=== PATIENT | female | born 1955 | race Caucasian/White ===

== ENCOUNTER → 2020-05-06 10:19 | Outpatient (CLI) | payer MEDICARE, SELFPAY ==
--- NOTE | ~2020-05-06 | CT_ITS ---
EXAMINATION: CT brain wo con EXAM DATE: 05/06/2020 10:39 INDICATION: Change in vision. TECHNIQUE: Spiral CT of the head was performed without contrast. Axial, coronal and sagittal images were reviewed. The dose-length product (DLP) for this examination was 599.57 mGy-cm. The exposure w as tailored according to patient size, and iterative reconstruction (ASIR) was used as additional dos e reduction technique. There is no prior study for comparison. FINDINGS: There is no acute intraparenchymal hemorrhage. No evidence of intraparenchymal brain mass lesion. No evidence of acute infarction. Please note that initial head CT has limited sensitivity f or small or acute infarctions. There is mild to moderate periventricular and subcortical hypodensity, nonspecific but probably related to small vessel ischemic disease. There is intracranial carotid arteriosclerosis. There are no extra-axial collections. There is no mass effect or midline shift. The orbits are unremarkable. Soft tissue is unremarkable. The visualized sinuses and mastoid air c ells are well aerated. IMPRESSION: 1. No acute intracranial findings. 2. Chronic age related findings. Reviewed, dictated and finalized at location B. [employer]
== END ==
PROVIDERS: PCP Internal Medicine; Visit Provider Internal Medicine
DX: H53.9 Unspecified visual disturbance (principal); I67.2 Cerebral atherosclerosis
CPT/HCPCS: 70450

== ENCOUNTER → 2021-02-28 18:31 | Outpatient (CLI) | payer MEDICARE, SELFPAY ==
--- NOTE | ~2021-02-28 | XR_ITS ---
XR hip LT 2V w AP pelvis DATE: 02/28/2021 19:10 INDICATION: Left hip pain TECHNIQUE: AP, lateral views of left hip. AP pelvis. COMPARISON: None FINDINGS: There is diffuse osteopenia. There is mild levoscoliosis of the lumbar spine. No pelvic fracture or bone destruction is detected. The pubic symphysis and sacroiliac joints are int act. Hip joint spaces are symmetric and relatively well preserved. No fracture or dislocation, avascular necrosis or bone destruction of the left hip. IMPRESSION: Osteopenia No pelvic or left hip fracture or dislocation Reviewed, dictated and finalized at location A.
== END ==
DX: M25.552 Pain in left hip (principal); M85.852 Other specified disorders of bone density and structure, left thigh
CPT/HCPCS: 73502

== ENCOUNTER → 2021-06-06 07:02 | Outpatient (CLI) | payer MEDICARE, SELFPAY ==
--- NOTE | ~2021-06-06 | DEXA_ITS ---
Bone Density Report Name: AILYN OSEI Age: 65 Sex: Female Ethnicity: White Date of : 1955 Indication: postmenopausal; screening for osteoporosis; height loss; Referring Provider: JULIETA Study: Bone densitometry was performed. Exam Date: June 06, 2021 Accession number: [id number] Bone Density: Region BMD T-score Z-score Classification AP Spine (L1, L2, L3) 1.005 -0.1 1.8 Normal Femoral Neck (Left) 0.733 -1.0 0.6 Normal Total Hip (Left) 0.815 -1.0 0.3 Normal Femoral Neck (Right) 0.713 -1.2 0.4 Osteopenia Total Hip (Right) 0.810 -1.1 0.3 Osteopenia Total Hip Mean 0.813 -1.1 0.3 Osteopenia World Health Organization criteria for BMD impression classify patients as: Normal (T-score at or above -1.0), Osteopenia (T-score between -1.0 and -2.5), or Osteoporosis (T-score at or below -2.5). 10-year Fracture Risk(1): Major Osteoporotic Fracture 8.6% Hip Fracture 0.8% Reported Risk Factors: [place] (), Neck BMD=0.713, BMI=30.3 (1) FRAX(R) Version 3.08. Fracture probability calculated for an untreated patient. Fracture probability may be lower if the patient has received treatment. Clinical Information Provided by Patient: Has used the following medications: Vitamin D, MTV Patient maximum height was 69 Menopause Age: 46 No regular weight bearing exercise Drinks caffeinated beverages Onset of menses at age 8 Number of children 2 Impression: The patient has low bone mass, based on the Right Femoral Neck T-score. The patient has an estimated ten-year risk of hip fracture of 0.8% and an estimated ten-year risk of major fracture of 8.6%, based on the WHO FRAX algorithm. Discussion: BONE DENSITY IS LOW AT ONE OR MORE SKELETAL SITES. This patient's lowest T-score is low at one or more skeletal sites. It meets the World Health Organization's (WHO) criteria for ?low bone mass? (T-score between -1.0 and -2.5). The patient's 10-year risk of fracture as calculated by FRAX is less than the threshold where pharmacological therapy is recommended by the National Osteoporosis Foundation (NOF). However, all treatment decisions require clinical judgment and consideration of individual patient factors, including patient preferences, comorbidities, previous drug use, risk factors not captured in the FRAX model (e.g., frailty, falls, vitamin D deficiency, increased bone turnover, interval significant decline in bone density) and possible under or overestimation of fracture risk by FRAX. The patient should follow a healthful lifestyle (good nutrition with adequate calcium and vitamin D, and appropriate weight-bearing exercise). Follow-Up: Consider repeating this study in 2 to 3 years to reassess this patient's status, or sooner if there is some new clinical indication. Reported by: [facility] on 06/06
== END ==
PROVIDERS: PCP Internal Medicine
DX: Z78.0 Asymptomatic menopausal state (principal); M85.89 Other specified disorders of bone density and structure, multiple sites
CPT/HCPCS: 77080

== ENCOUNTER → 2021-11-01 10:57 | Outpatient (CLI) | payer MEDICARE, SELFPAY ==
--- NOTE | ~2021-11-01 | MR_ITS ---
EXAMINATION: MR hip LT wo con DATE: 11/01/2021 12:31 INDICATION: 6 months of left hip pain TECHNIQUE: Magnetic resonance imaging (MRI) of the left hip was performed without intravenous contra st. Sequences included full-field axial PD-weighted FS FSE and T1-weighted FSE, coronal of the pelvis with PD-weighted FS FSE, T2-weighted FSE and T1-weighted FSE, small field of view of the left hip w ith axial PD-weighted FS FSE, sagittal PD-weighted FS FSE, coronal PD-weighted FS FSE and coronal T2 weighted FSE. Additional radial T1-weighted FGR oriented orthogonal to the acetabular rim were obtai robyn for evaluation of the labrum. COMPARISON: Radiographs dated 02/28/2021 FINDINGS: Bones/labrum/cartilage: Alignment is normal. No fracture, avascular necrosis or pathologic marrow replacing process. Severe lower lumbar spondylosis with severe disc height loss on either side of a transitional lumbosacral se gment lumbarized which is sacralized on the left. There is also severe lower lumbar facet osteoarthri tis. Moderate bilateral sacroiliac osteoarthritis. Mild left hip osteoarthritis with partial thicknes s cartilage loss with mild nonuniform joint space narrowing. There is partial thickness cartilage los s with smooth chondral surface at the posterior aspect of the joint space and partial-thickness chond ral ulceration and fissuring at the anterosuperior acetabulum. There is a tear of the 1:30-12:00 posi tion of the anterosuperior glenoid labrum. Fluid: Symmetric physiologic amount of fluid within both hip joints. Soft tissues: Mild tendinopathy and partial tears of the bilateral gluteus medius medius tendons with the myotendin ous junctions retracted approximately 6 cm from the greater trochanter on the right and 4.5 cm on the left. There is also approximately symmetric tendinopathy at the bilateral gluteus minimus tendons wi th small enthesophytes at the greater trochanteric insertions. There is symmetric moderate fatty atro phy of the gluteus minimus muscles suggesting associated partial tears. The iliopsoas and proximal perdomo mstring tendons are normal. Increased fluid signal at the bilateral ischial tuberosities consistent w ith ischial bursitis. There is moderate right-sided and mild left-sided tendinopathy without discrete tears at the ischial condylar origins of the bilateral abductor nargis tendons. Mild diverticulosis of the sigmoid colon. Limited evaluation of visceral organs of the pelvis is otherwise unremarkable. No pathologically enlarged pelvic/inguinal lymphadenopathy. IMPRESSION: 1. Mild left hip osteoarthritis with anterosuperior labral tear. 2. Relatively symmetric tendinopathy and likely partial tears at the greater trochanteric insertions of the bilateral gluteus medius and minimus tendons. 3. Bilateral ischial bursitis with mild left-sided and moderate right-sided tendinopathy at the origi ns of the abductor nargis tendons. 4. Severe lower lumbar spondylosis and moderate bilateral sacroiliac osteoarthritis. Reviewed, dictated and finalized at location B. IMPRESSION: 1. Mild left hip osteoarthritis with anterosuperior labral tear. 2. Relatively symmetric tendinopathy and likely partial tears at the greater tr ochanteric insertions of the bilateral gluteus medius and minimus tendons. 3. Bilateral ischial bursitis with mild left-sided and moderate right-sided ten dinopathy at the origins of the abductor nargis tendons. 4. Severe lower lumbar spondylosis and moderate bilateral sacroiliac osteoarthr itis.
== END ==
PROVIDERS: PCP Internal Medicine; Visit Provider Internal Medicine
DX: M16.12 Unilateral primary osteoarthritis, left hip (principal); M47.896 Other spondylosis, lumbar region; M70.72 Other bursitis of hip, left hip
CPT/HCPCS: 73721

== ENCOUNTER 2021-11-20 09:48 | Outpatient (CLI) | payer MEDICARE, SELFPAY ==
--- NOTE | 2021-11-28 14:29 | P.PCNHOL_ITS ---
Holter/Event Monitor Holter/Event Monitor Date of procedure: 11/20/21 Holter/Event Procedure: Event Monitor Indications: Bradycardia Conclusion: 1. 7 day event monitor between 11/20/21-11/26/21. There are 7 available tr ansmissions for analysis that are auto-triggered or symptom-triggered only. 2. Underlying rhythm is sinus rhythm. HR range 84-128 bpm in available transmissions. 3. No supraventricular or ventricular arrhythmias. 4. No significant pauses greater than 2 seconds. 5. Patient reports 2 episodes of symptoms of lightheadedness which demonstrate sinus rhythm, HR range 114-118 bpm.
== END 2021-11-20 09:49 | disposition home or self-care (01) ==
LOC: CHSCARD 09:58
PROVIDERS: PCP Internal Medicine; Visit Provider Internal Medicine
DX: R00.1 Bradycardia, unspecified (principal)
CPT/HCPCS: 93270

== ENCOUNTER 2022-01-20 07:50 | Outpatient (CLI) | payer MEDICARE, SELFPAY ==
--- NOTE | ~2022-01-20 | US_ITS ---
EXAMINATION: US right upper quadrant DATE: 01/20/2022 08:24 INDICATION: Abnormal liver function tests TECHNIQUE: Multiple grayscale and Doppler ultrasound images of the abdomen were obtained. COMPARISON: None available FINDINGS: The head and body of the pancreas are normal. The pancreatic tail is obscured by bowel gas. The liver is normal with normal echogenicity and echotexture. No surface nodularity. Normal hepatope braulio flow in the main portal vein. The gallbladder is normal with no abnormal wall thickening, pericho lecystic fluid or stones. The normal common bile duct measures 5 mm. There was no sonographic Campos sign. IMPRESSION: 1. No sonographic correlate for the patient's symptoms. Reviewed, dictated and finalized at location A.
== END 2022-01-20 07:51 | disposition home or self-care (01) ==
LOC: CHSIMG 07:51
PROVIDERS: PCP Internal Medicine; Visit Provider Internal Medicine
DX: R94.5 Abnormal results of liver function studies (principal)
CPT/HCPCS: 76705

== ENCOUNTER 2022-06-12 07:47 | Outpatient (CLI) | payer MEDICARE, SELFPAY ==
--- NOTE | ~2022-06-12 | MM_ITS ---
EXAMINATION: MM screening anmol BI w crystal HISTORY: Screening mammogram TECHNIQUE: Craniocaudal and mediolateral oblique 3-D tomosynthesis images were obtained and synthetic 2-D images were generated. CAD analysis was submitted and interpreted. COMPARISON: No prior mammogram is available for comparison at this institution. BREAST PARENCHYMAL COMPOSITION: There are scattered areas of fibroglandular density. FINDINGS: There is no evidence of suspicious mass, calcification, or architectural distortion to sugg est malignancy in either breast. There has been no suspicious interval change. IMPRESSION: 1. No mammographic evidence of malignancy. 2. Recommend routine screening mammography in one year. BI-RADS Category 1: Negative Reviewed, dictated and finalized at location A. 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
== END 2022-06-12 07:48 | disposition home or self-care (01) ==
LOC: CHSIMG 07:48
PROVIDERS: PCP Internal Medicine; Visit Provider Internal Medicine
DX: Z12.31 Encounter for screening mammogram for malignant neoplasm of breast (principal)
CPT/HCPCS: 77063; 77067

== ENCOUNTER 2022-11-05 15:23 | Outpatient (CLI) | payer MEDICARE, SELFPAY ==
--- NOTE | ~2022-11-05 | XR_ITS ---
EXAMINATION: XR chest 2V DATE: 11/05/2022 15:42 INDICATION: Cough. TECHNIQUE: Frontal and lateral views of the chest were obtained on 3 radiographs. COMPARISON: None. FINDINGS: There is no pneumonia, pleural effusion, or pneumothorax. The heart size is normal. IMPRESSION: 1. No acute cardiopulmonary disease. Reviewed, dictated and finalized at location E.
== END 2022-11-05 15:24 | disposition home or self-care (01) ==
LOC: CHSIMG 15:26
PROVIDERS: PCP Internal Medicine; Visit Provider Internal Medicine
DX: R05.9 Cough, unspecified (principal)
CPT/HCPCS: 71046

== ENCOUNTER 2022-11-30 08:51 | Outpatient (CLI) | payer MEDICARE, SELFPAY | END 2022-11-30 08:52 | disposition home or self-care (01) | LOC: CHSCARD 08:54 | PROVIDERS: PCP Internal Medicine; Visit Provider Internal Medicine | DX: J44.9 Chronic obstructive pulmonary disease, unspecified (principal); R06.02 Shortness of breath; R06.2 Wheezing | CPT/HCPCS: 94060; 94726; 94729; 95012 ==

== ENCOUNTER 2023-06-17 12:21 | Outpatient (CLI) | payer MEDICARE, SELFPAY ==
--- NOTE | ~2023-06-17 | DEXA_ITS ---
Bone Density Report Name: COLE OSEI Age: 67 Sex: Female Ethnicity: White Date of : 1955 Indication: postmenopausal; screening for osteoporosis; height loss; asthma or emphysema; Referring Provider: Treva Wharton Study: Bone densitometry was performed. Exam Date: June 17, 2023 Accession number: [id number] Bone Density: Region BMD T-score Z-score Classification AP Spine(L1, L2, L3) 0.998 -0.2 1.9 Normal Femoral Neck (Left) 0.710 -1.3 0.5 Osteopenia Total Hip (Left) 0.796 -1.2 0.3 Osteopenia Femoral Neck (Right) 0.701 -1.3 0.4 Osteopenia Total Hip (Right) 0.766 -1.4 0.0 Osteopenia Femoral Neck Mean 0.706 -1.3 0.5 Osteopenia Total Hip Mean 0.781 -1.3 0.2 Osteopenia World Health Organization criteria for BMD impression classify patients as: Normal (T-score at or above -1.0), Osteopenia (T-score between -1.0 and -2.5), or Osteoporosis (T-score at or below -2.5). 10-year Fracture Risk(1): Major Osteoporotic Fracture 9.1% Hip Fracture 1.1% Reported Risk Factors: [place] (), Neck BMD=0.701, BMI=29.6 (1) FRAX(R) Version 3.08. Fracture probability calculated for an untreated patient. Fracture probability may be lower if the patient has received treatment. Clinical Information Provided by Patient: Has the following medical conditions: Asthma or Emphysema Patient maximum height was 69 Menopause Age: 46 No regular weight bearing exercise Drinks caffeinated beverages Onset of menses at age 8 Number of children 2 Impression: The patient has low bone mass, based on the Right Total Hip T-score. Discussion: BONE DENSITY IS LOW AT ONE OR MORE SKELETAL SITES. This patient's lowest T-score is low at one or more skeletal sites. It meets the World Health Organization's (WHO) criteria for ?low bone mass? (T-score between -1.0 and -2.5). The patient's 10-year risk of fracture as calculated by FRAX is less than the threshold where pharmacological therapy is recommended by the National Osteoporosis Foundation (NOF). However, all treatment decisions require clinical judgment and consideration of individual patient factors, including patient preferences, comorbidities, previous drug use, risk factors not captured in the FRAX model (e.g., frailty, falls, vitamin D deficiency, increased bone turnover, interval significant decline in bone density) and possible under or overestimation of fracture risk by FRAX. The patient should follow a healthful lifestyle (good nutrition with adequate calcium and vitamin D, and appropriate weight-bearing exercise). Follow-Up: Consider repeating this study in 2 to 3 years to reassess this patient's status, or sooner if there is some new clinical indication. Reported by: Dr. Howard Abel on 06/17/2023 12:56:00 PM. Reviewed, dictated and finalized at location A.
--- NOTE | ~2023-06-17 | MM_ITS ---
EXAMINATION: MM screening anmol BI w crystal HISTORY: Screening TECHNIQUE: Craniocaudal and mediolateral oblique 3-D tomosynthesis images were obtained and synthetic 2-D images were generated. CAD analysis was submitted and interpreted. COMPARISON: 06/12/2022 BREAST PARENCHYMAL COMPOSITION: Not dense: There are scattered areas of fibroglandular density. FINDINGS: There is no evidence of suspicious mass, calcification, or architectural distortion to sugg est malignancy in either breast. There has been no suspicious interval change. IMPRESSION: 1. No mammographic evidence of malignancy. 2. Recommend routine screening mammography in one year. BI-RADS Category 1: Negative Reviewed, dictated and finalized at location A. 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
== END 2023-06-17 12:22 | disposition home or self-care (01) ==
LOC: CHSIMG 12:22
PROVIDERS: PCP Internal Medicine; Visit Provider Internal Medicine
DX: Z12.31 Encounter for screening mammogram for malignant neoplasm of breast (principal); Z78.0 Asymptomatic menopausal state; M85.89 Other specified disorders of bone density and structure, multiple sites
CPT/HCPCS: 77063; 77067; 77080

== ENCOUNTER 2023-07-13 09:36 | Outpatient (CLI) | payer MEDICARE, SELFPAY ==
--- NOTE | 2023-07-13 11:30 | NEURO_ITS ---
Impression: # Non-diabetic complains of numbness of lower extremities. # Motor/sensory asymmetrical neuropathy. # Needle/EMG exam reveals neurogenic changes. # Clinical correlation recommended. Nerve Conduction Studies Anti Sensory Summary Table Stim Site NR Peak (ms) P-T Amp (?V) Site1 Site2 Delta-P (ms) Dist (cm) Sidney (m/s) Left Saphenous Anti Sensory (Ant Med Mall) 14cm 3.5 9.2 14cm Ant Med Mall 3.5 0.0 Right Saphenous Anti Sensory (Ant Med Mall) 14cm 3.5 8.0 14cm Ant Med Mall 3.5 0.0 Left Sup Fibular Anti Sensory (Ant Lat Mall) 14 cm 3.6 4.1 14 cm Ant Lat Mall 3.6 16.0 44 Right Sup Fibular Anti Sensory (Ant Lat Mall) NO RESPONSE 14 cm NR 14 cm Ant Lat Mall 16.0 Left Sural Anti Sensory (Lat Mall) Calf 3.5 4.0 Calf Lat Mall 3.5 16.0 46 Right Sural Anti Sensory (Lat Mall) Calf 3.3 17.4 Calf Lat Mall 3.3 16.0 48 Motor Summary Table Stim Site NR Onset (ms) O-P Amp (mV) Site1 Site2 Delta-0 (ms) Dist (cm) Sidney (m/s) Left Peroneal Motor (Vastus Med) NO RESPONSE Ankle NR Popit Ankle 0.0 Popit NR Right Peroneal Motor (Vastus Med) Ankle 4.2 1.9 Popit Ankle 9.4 40.0 43 Popit 13.6 1.8 Left Tibial Motor (Abd Arroyo Brev) Ankle 4.2 0.3 Knee Ankle 10.3 43.0 42 Knee 14.5 0.1 Right Tibial Motor (Abd Arroyo Brev) Ankle 4.5 0.8 Knee Ankle 10.2 41.0 40 Knee 14.7 1.7 F Wave Studies NR F-Lat (ms) L-R F-Lat (ms) Left Peroneal (Mrkrs) (EDB) NO RESPONSE NR Right Peroneal (Mrkrs) (EDB) 55.31 Left Tibial (Mrkrs) (Abd Hallucis) 56.58 1.01 Right Tibial (Mrkrs) (Abd Hallucis) 57.59 1.01 EMG Side Muscle Nerve Root Ins Act Fibs Amp Dur Recrt Comment Right AntTibialis Dp Br Fibular L4-5 Nml Nml Nml Nml Nml Right Gastroc Tibial S1-2 Nml Nml Nml Nml Nml Right Fibularis Long Sup Br Fibular L5-S1 Nml Nml Nml Nml Nml Right Flex Dig Long Tibial L5-S2 Nml Nml Nml >12ms +1 Right Ext Dig Brev Dp Br Fibular L5, S1 Nml Nml Nml >12ms +2 Left AntTibialis Dp Br Fibular L4-5 Nml Nml Nml Nml Nml Left Gastroc Tibial S1-2 Nml Nml Nml Nml Nml Left Fibularis Long Sup Br Fibular L5-S1 Nml Nml Nml Nml Nml Left Flex Dig Long Tibial L5-S2 Nml Nml Nml >12ms +1 Left Ext Dig Brev Dp Br Fibular L5, S1 Nml Nml Nml >12ms +2 MTDD
== END 2023-07-13 09:37 | disposition home or self-care (01) ==
LOC: ANHNEURO 09:37
PROVIDERS: PCP Internal Medicine; Visit Provider Internal Medicine
DX: G62.9 Polyneuropathy, unspecified (principal)
CPT/HCPCS: 95886; 95911

== ENCOUNTER 2023-08-11 14:10 | Outpatient (CLI) | payer MEDICARE, SELFPAY ==
--- NOTE | ~2023-08-11 | MR_ITS ---
EXAMINATION: MR lumbar spine wo con DATE: 08/11/2023 14:52 INDICATION: Lumbar radiculopathy. TECHNIQUE: Magnetic resonance imaging (MRI) of the lumbar spine was performed without intravenous con trast. Sequences included sagittal T2-weighted FSE, sagittal T2-weighted FS FSE, sagittal T1-weighted FSE, and axial T2-weighted FSE. COMPARISON: None FINDINGS: There is a transitional segment at lumbosacral junction that is designated L5.. There is mi ld chronic anterior wedging of T11 vertebral body. There are Schmorl's nodes at multiple levels. Ther e is mildly decreased disc height at L3-L4, severely decreased disc height at L4-L5, and mildly decre ased disc height at L5-S1. The distal spinal cord signal intensity is normal. The conus medullaris is at T12-L1. The following disc levels are specifically discussed: L1-L2: There is a left foraminal protrusion. There is mild right and moderate left facet joint osteoa rthritis. There is mild left neural foraminal stenosis. There is no central canal stenosis. L2-L3: The disc is bulging. There is moderate right and severe left facet joint osteoarthritis. There is mild bilateral neural foraminal stenosis. There is mild central canal stenosis. L3-L4: The disc is bulging and has an annular fissure. There is severe bilateral facet joint osteoart hritis. There is mild bilateral neural foraminal stenosis. There is moderate central canal stenosis. L4-L5: The disc is bulging and has an annular fissure. There is severe bilateral facet joint osteoart hritis. There is mild bilateral neural foraminal stenosis. There is mild central canal stenosis. L5-S1: The disc does not extend beyond the endplate margin. There is severe bilateral facet joint ost eoarthritis. There is no neural foraminal stenosis. There is no central canal stenosis. IMPRESSION: 1. Severe lumbar spondylosis. Reviewed, dictated and finalized at location E.
== END 2023-08-11 14:11 ==
LOC: MICIMG 14:11
PROVIDERS: PCP Internal Medicine; Visit Provider Internal Medicine
DX: M43.06 Spondylolysis, lumbar region (principal)
CPT/HCPCS: 72148

== ENCOUNTER 2023-10-26 14:26 | Outpatient (CLI) | payer MEDICARE, SELFPAY ==
--- NOTE | ~2023-10-26 | XR_ITS ---
EXAM: XR lumbar spine min 4V DATE: 10/26/2023 14:45 HISTORY: Please have pt bend forward and backward . COMPARISON: MR L-spine 08/11/2023. FINDINGS: Decreased mineralization. 4 nonrib-bearing lumbar-type vertebral bodies. Transitional [place] ent at the lumbosacral junction. Last fully formed disc is designated L5-S1. Partial sacralization on the left at L5. Mild disc space narrowing at L3-4. Severe disc space narrowing at L4-5. Moderate dis c space narrowing at L5-S1. 2 mm retrolisthesis at L2-3 that reduces slightly in flexion. 4 mm yari listhesis at L3-4 that increases to 6 mm in flexion. Multilevel severe facet sclerosis and hypertroph y with interspinous narrowing in the mid and lower bar spine. No fracture or dislocation. IMPRESSION: Osteopenia. Transitional element at the lumbosacral junction. Grade 1 dynamic listheses a t L2-3 and L3-4. Multilevel degenerative disc disease, severe at L4-5. Multilevel severe facet arthro scooter. Reviewed, dictated and finalized at location K. IMPRESSION: Osteopenia. Transitional element at the lumbosacral junction. Grade 1 dynamic listheses at L2-3 and L3-4. Multilevel degenerative disc disease, se yas at L4-5. Multilevel severe facet arthropathy.
== END 2023-10-26 14:27 ==
LOC: MICIMG 14:28
PROVIDERS: PCP Internal Medicine; Visit Provider Neurological Surgery
DX: M43.17 Spondylolisthesis, lumbosacral region (principal); M51.36 Other intervertebral disc degeneration, lumbar region; M47.896 Other spondylosis, lumbar region; M85.89 Other specified disorders of bone density and structure, multiple sites
CPT/HCPCS: 72110

== ENCOUNTER 2024-01-03 12:49 | Outpatient (CLI) | payer MEDICARE, SELFPAY ==
--- NOTE | 2024-01-03 12:59 | ECG_ITS ---
Test Date: 2024-01-03 13:14:29 Measurements Intervals [place] Rate: 74 P: 9 NV: 154 QRS: 51 QRSD: 89 T: 41 QT: 343 QTc: 382 Interpretive Statements SINUS RHYTHM DELAYED PRECORDIAL R/S TRANSITION BORDERLINE ST-T WAVE ABNORMALITY- HIGH LATERAL LEADS BASELINE ARTIFACT- I, II, AVR, AVL BORDERLINE ECG No previous ECG available for comparison Electronically Signed On 01-03-2024 14:16:58 CDT by Francois López D.O.
[2024-01-03 13:58] LABS: Prothrombin Time 13.4 Seconds (11.1-14.7)
[2024-01-03 13:59] LABS: Partial Thromboplastin Time 26.8 Seconds (22.3-36.8)
== END 2024-01-03 12:50 | disposition home or self-care (01) ==
PROVIDERS: PCP Internal Medicine; Visit Provider Neurological Surgery
DX: Z01.818 Encounter for other preprocedural examination (principal); I10 Essential (primary) hypertension; M47.816 Spondylosis without myelopathy or radiculopathy, lumbar region
CPT/HCPCS: 36415; 85610; 85730; 93005

== ENCOUNTER 2024-01-11 00:29 | Day surgery (SDC) | payer MEDICARE, SELFPAY ==
[2023-12-30 12:30] VITALS: BMI 28.1
--- NOTE | 2023-12-30 12:39 | PC.NURSE ---
Report to the Outpatient Waiting Room, entrance under the green pavilion located off [facility], at time _0900_ on date 01-11-2024_. Planned Procedure Time: _1100_.? Time changes happen often and if your time is changed the preop area will call you the afternoon before. - You and your visitor will be asked to self-screen and do not enter if you have any COVID symptoms. Please call surgeon if you need to reschedule. - A mask is optional within the hospital at this time. Patients may have clear liquids (water, carbonated beverages, clear teas, apple juice) until 3 hours prior to surgery with a maximum of 20 ounces. - No food from midnight until time of surgery and no smoking Take only the following medications with a SIP of water on the morning of surgery: ___Amlodipine, Gabapentin, Levothyroxine and Flonase. DO NOT STOP ANY OF YOUR OTHER PRESCRIPTION MEDICATIONS PRIOR TO SURGERY EXCEPT THE FOLLOWING Medications to discontinue per physician Multivitamin Date to take last urqj__[id number] Mmpcyia instructed by office to stop Diclofenac 01-04-2024. Please no make-up, nail puerto rican, hairspray, perfume, deodorant, or body powder the day of surgery.? No jewelry (including any body piercings) or valuables the day of surgery, leave them at home.? Please take a shower or bath the night before, or the morning of, surgery with an antibacterial soap.? Wear comfortable, loose fitting clothing.? - Jewelry must be removed prior to entering the operating room.? Rings and piercings that are not removed may be cut off. - The hospital will not accept responsibility for valuables.? - Please leave all valuables, including medications, at home the day of surgery. If you are going home after surgery, a licensed regional refrigerated cdl truck driver must drive you home.? - NO public transportation without another adult if you receive anesthesia. - We recommend that an adult stay with you for 24 hours following discharge. - We also recommend that you do not drive, make important decision, drink alcoholic beverages, or take any drugs that were not prescribed by your health care provider for at least 24 hours after your discharge time. Follow any additional instructions given to you from your surgeon. Telephone instructions given to __Sue__and asked if any additional questions and then verbalized understanding. Patient advised to call surgeon office or pre surgery nurse liaison [phone] if any additional questions.
[2024-01-11] VITALS (14 sets, daily range): BP systolic 105–140; BP diastolic 56–77; PULSE 68–96; RESP 11–20; TEMP 36.3–36.6; O2SAT 92–100; BMI 29.7
--- NOTE | ~2024-01-11 | XR_ITS ---
EXAMINATION: XR fluoroscopy no charge DATE: 01/11/2024 09:42 INDICATION: L4-L5 lumbar laminectomy TECHNIQUE: Single lateral fluoroscopic spot image of the lower lumbar spine was obtained during proce dure performed by Dr. Ribeiro. Radiologist was not present for the imaging or procedure. The amount of fluoroscopy time used during this procedure was 0.1 minutes. COMPARISON: 10/26/2023 FINDINGS: Images demonstrate surgical retractors and lap sponge ejecting over the soft tissues blind cleaner ior to the lower lumbar spine. The tip of a metallic probe projects over the posterior elements of L5 . IMPRESSION: 1. Fluoroscopy utilized during neurosurgical procedure at the lower lumbar spine. See procedure note for further detail. Reviewed, dictated and finalized at location B. IMPRESSION: 1. Fluoroscopy utilized during neurosurgical procedure at the lower lumbar spin e. See procedure note for further detail.
[2024-01-11] MEDS: LACTATED RINGERS 1,000 ML 30 ML IV CONT ×2 (06:40→09:42)
--- NOTE | 2024-01-11 07:39 | WPDANESEPPF ---
Anes - Initial Pre Proc Eval Procedure: Operation Date: 01/11/24 07:30 Proposed Procedures p L4-5, Lumbar Laminectomy - Krishna Ribeiro MD Date/Time: 01/11/24 07:39 Surgeon: Krishna Ribeiro MD Pre Op Diagnosis: L4-5 stenosis Patient Data Age: 68 Gender: F Height: 1.75 m Weight: 91.2 kg Last Vital Signs Temp 97.3 F L 01/11/24 06:00 Pulse 73 01/11/24 06:00 Resp 14 01/11/24 06:00 BP 140/73 01/11/24 06:00 Pulse Ox 97 01/11/24 06:00 O2 Del Method Room Air 01/11/24 06:00 Allergies Allergy/AdvReac Type Severity Reaction Status Date / Time No Known Allergies Allergy Verified 01/11/24 07:21 Home Medications Medication Instructions Recorded Confirmed Type amlodipine 10 mg tablet 10 mg PO DAILY 10/26/23 01/11/24 History atorvastatin 20 mg tablet 20 mg PO DAILY 10/26/23 12/30/23 History cholecalciferol (vitamin D3) 25 25 mcg PO DAILY 10/26/23 01/11/24 History mcg (1,000 unit) capsule diclofenac sodium 75 mg 75 mg PO BID 10/26/23 12/30/23 History tablet,delayed release fluticasone propionate 50 1 spray intranasal DAILY 10/26/23 12/30/23 History mcg/actuation nasal spray,suspension hydrochlorothiazide 12.5 mg tablet 12.5 mg PO DAILY 10/26/23 12/30/23 History levothyroxine 150 mcg capsule 150 mcg PO DAILY 10/26/23 01/11/24 History losartan 100 mg tablet 100 mg PO DAILY 10/26/23 12/30/23 History mirtazapine 7.5 mg tablet 7.5 mg PO DAILY 10/26/23 12/30/23 History multivitamin 1 tablet PO DAILY 10/26/23 01/11/24 History gabapentin 300 mg capsule 300 mg PO TID 12/30/23 01/11/24 History Patient hx anesthesia problems: none Family hx anesthesia problems: none Results Review: All pre-operative results and documents have been reviewed as part of the pre-operative evaluation. [facility] Past Medical History Medical History Asthma Headache HTN (hypertension) Lumbar stenosis with neurogenic claudication Thyroid disorder Surgical History Surgical History History of dental surgery Family History Family History Father Alcoholism Hypertension Heart disease Mother Hypertension Cerebrovascular accident Sibling Alcoholism Diabetes mellitus Hypertension Depression Social History Social History Smoking status: Never smoker Alcohol intake: never Substance use type: does not use Do You Feel Safe in your Home?: Yes Lack of Transportation: No Lack of Food: Never True Current Housing: I Have Housing Concerned About Future Housing: No Difficulty Paying Gas/Electric Bills: No Difficulty Paying for Meds: No Currently Unemployed: No Education: Bachelor's Degree Difficulty w/ Childcare or Family Care: No Living arrangements: with family Spiritual care concerns: No Anes - Eval Final PreProcedure Day of Procedure 01/11/24 07:39 Patient weight: overweight Heart: regular rate and rhythm Lungs: clear to auscultation Airway: Mallampati scale class II Neurological: alert and oriented Last oral intake: >/= 8 hours ASA classification: III Emergent: no Anesthetic plan: proceed Anesthesia type and monitoring: general ETT and standard monitoring Results Review: All pre-operative results and documents have been reviewed as part of the pre-operative evaluation. Informed Consent: The patient's anesthetic plan and its attendant risks and benefits were discussed with the patient/family/POA. Questions were solicited and answers provided to the satisfaction of the patient/family/POA.
--- NOTE | 2024-01-11 07:46 | PM.IMHP ---
H&P: HPI History of Present Illness Date/Time: 01/11/24 07:46 Chief Complaint: Rosanne is a 67-year-old female with a 2 year history of problems related to her back and lower extremities. She has claudication. That is, she cannot walk long distances because she develops pain in her back that radiates into her bilateral lower extremities posteriorly all the way down into the calf without going all the way into the foot. She does not report specific muscle group weakness or dermatomal numbness. She does not report bowel or bladder difficulty. She also has pain when she sleeps at night and when she is sitting but it is less. Sitting is in general her best position as long as the chair is good and has good support. This problem has become is severe and limiting for her on a daily basis. She has participated in physical therapy without benefit. Review of Systems Review of Systems: Const Details: Const All systems reviewed & are unremarkable except as noted in HPI and below Denies chills, Denies fever(s), Denies weakness, Denies weight gain and Denies weight loss Eyes Denies change in vision and Denies diplopia ENT Denies neck pain and Denies disequilibrium Card Denies chest pain and Denies dyspnea Resp Denies cough and Denies dyspnea GI Denies abdominal pain, Denies change in bowel habits, Denies fecal incontinence and Denies vomiting Denies hematuria, Denies oliguria, Denies difficulty urinating, Denies dysuria, Denies urinary frequency, Denies urinary hesitancy, Denies urinary incontinence and Denies urinary urgency Musc Reports as per HPI, Reports back pain, Denies muscle weakness, Denies neck pain, Reports numbness and Denies stiffness Skin/ Breast Reports system reviewed and no additional complaints, except as documented Neuro Reports as per HPI, Denies burning sensations, Denies focal weakness, Reports numbness, Denies Other visual disturbances, Reports radicular pain, Reports paresthesias, Denies disequilibrium and Denies weakness Psych Reports no additional complaints, Denies depression and Denies hopelessness Endo Reports no additional complaints and Denies polyuria Navi/ Lymph Reports no additional complaints Aller/ Immun Reports no additional complaints PMFSH Past Medical History Medical History Asthma Headache HTN (hypertension) Lumbar stenosis with neurogenic claudication Thyroid disorder Surgical History Surgical History History of dental surgery Family History Family History Father Alcoholism Hypertension Heart disease Mother Hypertension Cerebrovascular accident Sibling Alcoholism Diabetes mellitus Hypertension Depression Social History Social History Smoking status: Never smoker Alcohol intake: never Substance use type: does not use Do You Feel Safe in your Home?: Yes Lack of Transportation: No Lack of Food: Never True Current Housing: I Have Housing Concerned About Future Housing: No Difficulty Paying Gas/Electric Bills: No Difficulty Paying for Meds: No Currently Unemployed: No Education: Bachelor's Degree Difficulty w/ Childcare or Family Care: No Living arrangements: with family Spiritual care concerns: No Meds Home Medications and Allergies Home Medications Medication Instructions Recorded Confirmed Type amlodipine 10 mg tablet 10 mg PO DAILY 10/26/23 01/11/24 History atorvastatin 20 mg tablet 20 mg PO DAILY 10/26/23 12/30/23 History cholecalciferol (vitamin D3) 25 25 mcg PO DAILY 10/26/23 01/11/24 History mcg (1,000 unit) capsule diclofenac sodium 75 mg 75 mg PO BID 10/26/23 12/30/23 History tablet,delayed release fluticasone propionate 50 1 spray intranasal DAILY 10/26/23 12/30/23 History
--- NOTE | 2024-01-11 07:48 | WPDHPUPDATE1 ---
History and Physical Update Update Date/Time: 01/11/24 07:48 History and Physical has been reviewed, including an updated exam of the patient. There are NO changes in the patient's condition. Risks, benefits, and alternatives have been discussed and questions answered. Patient agrees to proceed with procedure.
--- NOTE | 2024-01-11 07:49 | WPDHPUPDATE1 ---
History and Physical Update Update Date/Time: 01/11/24 07:49 History and Physical has been reviewed, including an updated exam of the patient. There are NO changes in the patient's condition. Risks, benefits, and alternatives have been discussed and questions answered. Patient agrees to proceed with procedure.
[2024-01-11] MEDS: ceFAZolin 2 GM/D5W 50 ML 2 GM/50 ML BAG IVPB (07:50)
[2024-01-11] MEDS: LIDO 1%/EPINEPHRINE 1:100,000 50 ML VIAL 10 ML INFILTRATE (08:26)
--- NOTE | 2024-01-11 09:30 | W.PM.PROC2 ---
Procedure Note - Detailed Date of Procedure 01/11/24 Pre-op Diagnosis L4-5 stenosis Post-op Diagnosis Same Procedure Performed L4-5 laminectomy Surgeon Krishna Ribeiro MD Anesthesia General Description of Procedure the patient was brought to the operating room in the supine position, was sedated, intubated placed under general anesthesia in routine fashion. She was then turned into the prone position on a Karthik frame. Very of operation on her back was examined, marked for incision, prepped and draped in routine sterile fashion. Incision was marked over the L4-L5 spinous processes in the midline. This area was injected with 0.5% lidocaine with [id number] epinephrine. Intravenous antibiotics given prior to incision. Incision was made with a 10 blade scalpel down to the lumbodorsal fascia. A subperiosteal dissection of the muscle soft tissue away from spinous process lamina at L4-5 was performed with a subperiosteal elevator and Bovie cautery. A verifying x-rays obtained to verify the level of operation. The L4-L5 spinous processes were removed with a Page rongeur. Kerrison punches, curved curettes and Leksell rongeur were used to remove lamina in the midline to the soft contents of the canal were encountered. Midas-David drill was used to resect additional of laminar bone bilaterally. Curved curette was used to define a plane with the dura and Kerrison punches were used to remove overgrown bone ligament the 1st in the midline and then the lateral recess. This was done Superior to inferior. These meds were performed until a dental instrument could be placed in the lateral epidural space to confirm lack of compression. The wound was then copiously irrigated with bacitracin irrigation all bleeding stopped with bipolar Bovie cautery Gelfoam thrombin powder. The wound was then closed in layered fashion with 2-0 Vicryl interrupted sutures in the lumbodorsal fascia and Mercy's layer. 3-0 Vicryl buried interrupted sutures were placed in the dermis and skin was closed with a running 4-0 Monocryl subcuticular stitch and dressed with Dermabond. The patient was allowed wake up in the operating room and was taken to the recovery room in stable condition. There were no immediate complications of this operation. All counts were reported correct at the end of the case. Blood loss was 50 cc. The patient was neurologically at her baseline postoperatively. CPT codes: 64553, 51800 Estimated Blood Loss 50 IV Fluids 1,000 Drains Yes Complications None Condition Stable Disposition PACU [facility] Billing Surgery - Charge Forward: Surgery Billing
[2024-01-11] MEDS: fentaNYL CITRATE INJ (*CRX) 100 MCG/2 ML VIAL 25 MCG IV PUSH ×2 (10:15→10:22)
[2024-01-11] MEDS: ONDANSETRON INJ 4 MG/2 ML VIAL IV PUSH ×2 (10:47→12:36)
--- NOTE | 2024-01-11 11:10 | ADMGEN ---
This patient, Rosanne Hicks, was admitted to 2 Medical Room 259-01. Patient/family oriented to hospital policies and general routines including ID bracelet, bed and alarms, visiting hours, pain management, procedures, bathroom and other care routines, personal items, smoking policy, room service/diet, and visiting hours. Information on how to activate the Rapid Response Team has been discussed. Patient/Family are encouraged to report perceived risks to care and to ask questions if they do not understand what they are told or what they should do.
[2024-01-11] MEDS: GABAPENTIN 300 MG CAPSULE PO ×2 (12:24→16:38)
[2024-01-11] MEDS: HYDROcodone/acetaminophen (*CRX) 10-325 MG TABLET 1 TAB PO ×2 (12:29→21:50)
[2024-01-11] MEDS: KCL 20 MEQ/D5/0.45% SOD CHL 1,000 ML 100 ML IV CONT (12:30)
[2024-01-11] MEDS: ceFAZolin 1 GM/NS 50 ML 1 GM/50 ML BAG IVPB ×2 (16:38→21:47)
[2024-01-11] MEDS: MIRTAZAPINE 7.5 MG TABLET PO (21:47)
[2024-01-12 00:27] VITALS: BP 109/73; PULSE 82; RESP 16; TEMP 36.4; O2SAT 96
[2024-01-12] MEDS: KCL 20 MEQ/D5/0.45% SOD CHL 1,000 ML 30 ML IV CONT (02:21)
[2024-01-12] MEDS: LEVOTHYROXINE SODIUM 150 MCG TABLET PO (05:22)
[2024-01-12] MEDS: ceFAZolin 1 GM/NS 50 ML 1 GM/50 ML BAG IVPB ×2 (05:22→13:03)
[2024-01-12 06:43] VITALS: BP 111/65; PULSE 80; RESP 14; TEMP 36.4; O2SAT 94
[2024-01-12 08:41] VITALS: BP 120/61; PULSE 80; RESP 12; TEMP 36.3; O2SAT 95
[2024-01-12] MEDS: ATORVASTATIN 20 MG TABLET PO (08:49)
[2024-01-12] MEDS: GABAPENTIN 300 MG CAPSULE PO ×2 (08:49→12:59)
[2024-01-12] MEDS: LOSARTAN POTASSIUM 100 MG TABLET PO (08:49)
[2024-01-12] MEDS: hydroCHLOROthiazide 12.5 MG CAPSULE PO (08:49)
[2024-01-12] MEDS: MULTIVITAMINS THERAPEUTIC TAB (*BKC) 1 TABLET PO (08:49)
[2024-01-12] MEDS: amLODIPine BESYLATE 10 MG TABLET PO (08:49)
[2024-01-12] MEDS: FLUTICASONE PROPIONATE 0.05% NA SPR 16 GM BTL (*BKC) 1 SPRAY NASAL (08:49)
[2024-01-12] MEDS: CHOLECALCIFEROL 1,000 UNITS TABLET 1000 UNITS PO (08:49)
[2024-01-12] MEDS: DOCUSATE SODIUM 100 MG CAPSULE PO (08:49)
[2024-01-12] MEDS: HYDROcodone/acetaminophen (*CRX) 10-325 MG TABLET 1 TAB PO (08:52)
[2024-01-12 12:41] VITALS: BP 115/58; PULSE 78; RESP 14; TEMP 36.8; O2SAT 96
== END 2024-01-12 17:15 | disposition home or self-care (01) ==
LOC: ANHSURGERY 05:51 → ANH2MED 11:08
PROVIDERS: PCP Internal Medicine; Visit Provider Neurological Surgery
PROC: (CPT 63005; principal; 2024-01-11 07:30)
DX: M48.062 Spinal stenosis, lumbar region with neurogenic claudication (principal); I10 Essential (primary) hypertension; J45.909 Unspecified asthma, uncomplicated; E07.9 Disorder of thyroid, unspecified; Z98.890 Other specified postprocedural states; Z82.49 Family history of ischemic heart disease and other diseases of the circulatory system
CPT/HCPCS: 63047; 63048; 97161; 97165; 97530; 97535; 99199; A9270; J0690; J1100; J2405; J2704; J3010; J3480; J7120

== ENCOUNTER 2024-06-19 11:48 | Outpatient (CLI) | payer MEDICARE, SELFPAY ==
--- NOTE | ~2024-06-19 | MM_ITS ---
EXAMINATION: MM screening anmol BI w crystal HISTORY: Screening mammogram TECHNIQUE: Craniocaudal and mediolateral oblique 3-D tomosynthesis images were obtained and synthetic 2-D images were generated. CAD analysis was submitted and interpreted. COMPARISON: 06/17/2023, 06/12/2022 BREAST PARENCHYMAL COMPOSITION:Not Dense. The breasts are almost entirely fatty FINDINGS: No suspicious mass, calcification, or architectural distortion are identified in either jillian ast to suggest malignancy. There has been no suspicious interval change. IMPRESSION: No mammographic evidence of malignancy. Recommend routine screening mammography in one year. BI-RADS Category 1: Negative Reviewed, dictated and finalized at location . [employer]
--- OUTSIDE RECORDS SUMMARY | 2024-06-19 13:38 | XMS_ITS | Clinical Summary ---
Author Organization [facility] Address [address] [place] [id number] Care Team Providers Care Chief Compliance Officer Name Role Phone Kerry Momin MD Primary Care Provider [phone] Medications METOPROLOL SUCCINATE ER OR Take 50 mg by mouth daily. 11/28/2020 Active atorvastatin 20 MG tablet 02/16/2021 Active buPROPion SR 150 MG 12 hr tablet 01/12/2021 Act libby hydroCHLOROthiaz damaso 12.5 MG tablet 01/24/2021 Active SYNTHROID 125 MCG tablet 12/25/2020 Active losartan 100 MG tablet 02/12/2021 Active traZODone 50 MG tablet 01/24/2021 Active SUMAtriptan 100 MG tablet 07/13/2020 Active HYDROcodone-acet aminophen 10-325 MG tabletIndication s:Acute Pain < 3 Day Supply Take 1 tablet by mouth every 6 (six) hours as needed for Pain. Indications : Acute Pain < 3 Day Supply 12 tablet 02/18/2021 Active Social History Tobacco Use Types Packs/Day Years Used Date Smoking Tobacco: Never Smokeless Tobacco: Never Comments No Sex and Gender Information Value Date Recorded Sex Assigned at Not on file Legal Sex Female 6:20 PM CDT Gender Identity Not on file Sexual Orientation Not on file Last Filed Vital Signs Vital Sign Reading Time Taken Comments Blood Pressure 168/91 02/18/2021 11:09 AM CDT Pulse 82 02/18/2021 11:09 AM CDT Temperature 36.3 C (97.3 F) 02/18/2021 11:09 AM CDT Respiratory Rate 16 02/18/2021 11:09 AM CDT Oxygen Saturation 96% 02/18/2021 11:09 AM CDT Inhaled Oxygen Concentration - - Weight 86.2 kg (190 lb) 02/18/2021 11:09 AM CDT Height 175.3 cm (5' 9 ) 02/18/2021 11:09 AM CDT Body Mass Index 28.06 02/18/2021 11:09 AM CDT Plan of Treatment Health Maintenance Due Date Last Done Comments Colorectal Cancer Screening Colonoscopy (10 Years) 1953 Hepatitis C 11/15/1971 DTaP, Tdap and Td Vaccines ( 1 - Tdap) 1972 Mammogram Screening 1993 Zoster Vaccines (2 of 3) 02/20/2015 12/26/2014 Annual Medicare Wellness Visit 2018 Dexa Scan (General) 2018 Pneumococcal Vaccine: 65+ Years (1 of 1 - PCV) 2018 COVID-19 Vaccine (3 - 2023-2 5 season) 2023 08/15/2020, 07/19/2020 Influenza Adult (#1) 2024 02/16/2021 RSV Immunization or 60+ Years (1 - 1-dose 75+ series) 2028 Meningococcal B Vaccine Aged Out No l onger eligible based on patient's age to complete this topic Meningococcal Vaccine Aged Out No alina rivera eligible based on patient's age to complete this topic RSV Immunizations Under 20 Months Aged Out No longer eligible b ased on patient's age to complete this topic Insurance MEDICARE [facility] Care Teams Chief Compliance Officer Relationship Specialty [place] [address] [place] [address] PCP - General INTERNAL MEDICINE 02/18/21
--- OUTSIDE RECORDS SUMMARY | 2024-06-19 13:39 | XMS_ITS | Clinical Summary ---
Author Organization [facility] [address] Address [address] [place] [address] Care Team Providers Care Turning Machine Operator Name Role Phone Treva Wharton MD Primary Care Provider + [phone] Allergies No known active allergies Medications traZODone (DESYREL) 50 mg tablet 50 mg. 0 0 12/14/2015 Active amLODIPine (NORVASC) 10 mg tablet 05/20/2022 Active atorvastatin (LIPITOR) 20 mg tablet 03/26/2022 Active losartan (COZAAR) 50 mg tablet 100 mg 05/15/2022 Active SUMAtriptan (IMITREX) 100 mg tablet 03/30/2022 Active hydroCHLOROthiazi de (HYDRODIURIL) 12.5 mg tablet 03/13/2022 Acti ve levothyroxine (SYNTHROID) 150 mcg tablet 05/15/2022 Active Active Problems Problem Noted Date Diagnosed Date Epistaxis 05/29/2022 Assessment & Plan (05/29/2022 6:48 PM TRANSCRIPTION): This appears to be caused by a fairly prominent vessel along the anterior superior nasal septum on the left side. This was cauterized without difficulty. No other bleeding sites noted. I recommended no further intervention. Follow-up as needed. Internal nasal lesion 05/29/2022 Assessment & Plan (05/29/2022 6:49 PM TRANSCRIPTION): This lesion was cauterized with silver nitrate after it was topically anesthetized using lidocaine and phenol Afrin. She tolerated this well. I recommended applying some Neosporin ointment twice a day to this area. Start that tomorrow and continue for approximately 10 days. Rash 12/14/2015 Overview (07/30/2016): Rash Surgical History Surgery Date Site/Laterality Comments THYROIDECTOMY 04/26/1983 - 04/25/1984 Thyroidectomy EYE SURGERY 04/26/2021 - 04/25/2022 Bilateral cataracts Medical History Medical History Date Comments Hypertension Hypertension Disorder of thyroid Thyroid dise ase Hx Other Medical Insomnia; Comme nts: KATori 12/14/2015 - Allergic rhinitis Nosebleed Migraine Family History Medical History Relation Name Comments Heart disease Father Colon cancer Maternal Grandmother Cancer, colon; COPD Mother Hypertension Other Family history of Hypertension; Hypertension Sister Relation Name Status Comments Father Maternal Grandmother Mother Other Sister Social History Tobacco Use Types Packs/Day Years Used Date Smoking Tobacco: Never Smokeless Tobacco: Never Tobacco Cessation:Counseling Given: Not Answered Comments Unknown Sex and Gender Information Value Date Recorded Sex Assigned at Not on file Legal Sex Female 9:58 AM TRANSCRIPTION Gender Identity Not on file Sexual Orientation Not on file Obstetrics History Last Filed Vital Signs Vital Sign Reading Time Taken Comments Blood Pressure 130/88 12/14/2015 4:34 PM CDT Pulse 68 12/14/2015 4:34 PM CDT Temperature - - Respiratory Rate 18 05/26/2022 11:29 AM TRANSCRIPTION Oxygen Saturation 98% 12/14/2015 4:34 PM CDT Inhaled Oxygen Concentration - - Weight 86.2 kg (190 lb) 05/26/2022 11:29 AM TRANSCRIPTION Height 175.3 cm (5' 9 ) 05/26/2022 11:29 AM TRANSCRIPTION Body Mass Index 28.06 05/26/2022 11:29 AM TRANSCRIPTION Plan of Treatment Health Maintenance Due Date Last Done Comments Breast Cancer Screening-Mammogram 1955 Colon Cancer Screening-Colonoscopy 1955 Depression Screening 1953 Fall Risk Assessment 1955 Hepatitis C Screening 1955 Osteoporosis Screening-Bone Density Scan 1955 Hepatitis B Screening 11/15/1971 Zoster Vaccine (2 of 3) 02/20/2015 12/26/2014 Well Visit 65+ 2018 Pneumococcal vaccine 65+ (2 of 2 - PCV) 02/16/2022 02/16/2021 Covid-19 Vaccine (5 - 2023-2 5 season) 2023 01/15/2022, 04/02/2021, 08/15/2020, Additional history exists Influenza Vaccine (#1) 2023 , 02/16/2021, 02/01/2019, Additional history exists DTaP/Tdap/Td Vaccine (2 - Td or Tdap) 03/10/2026 03/10/2016, 07/13/2003 [place] [address] [facility] Care Teams Turning Machine Operator Relationship Specialty Start Date End Date Treva Wharton MD [address] [place] [address] PCP - General Internal Medicine 05/26/22
--- OUTSIDE RECORDS SUMMARY | 2024-06-19 13:39 | XMS_ITS | Referral Summary ---
Author Organization [facility] [address] Address [address] [place] [address] Care Team Providers Care Stem Lead Former Name Role Phone Treva Wharton MD Primary Care Provider + [phone] Allergies No known active allergies Medications traZODone [...] 05/29/2022 Assessment & Plan (05/29/2022 6:48 PM INSTRUCTOR DANCING): This appears to be caused by a fairly prominent vessel along the anterior superior nasal septum on the left side. This was cauterized without difficulty. No other bleeding sites noted. I recommended no further intervention. Follow-up as needed. Internal nasal lesion 05/29/2022 Assessment & Plan (05/29/2022 6:49 PM INSTRUCTOR DANCING): This lesion was cauterized with silver nitrate after it was topically anesthetized using lidocaine and phenol Afrin. She tolerated this well. I recommended applying some Neosporin ointment twice a day to this area. Start that tomorrow and continue for approximately 10 days. Rash 12/14/2015 Overview (07/30/2016): Rash Social History Tobacco Use Types Packs/Day Years Used Date Smoking Tobacco: Never Smokeless Tobacco: Never Tobacco Cessation:Counseling Given: Not Answered Comments Unknown Sex and Gender Information Value Date Recorded Sex Assigned at Not on file Legal Sex Female 9:58 AM INSTRUCTOR DANCING Gender Identity Not on file Sexual Orientation Not on file Last Filed Vital Signs Vital Sign Reading Time Taken Comments Blood Pressure 130/88 12/14/2015 4:34 PM CDT Pulse 68 12/14/2015 4:34 PM CDT Temperature - - Respiratory Rate 18 05/26/2022 11:29 AM INSTRUCTOR DANCING Oxygen Saturation 98% 12/14/2015 4:34 PM CDT Inhaled Oxygen Concentration - - Weight 86.2 kg (190 lb) 05/26/2022 11:29 AM INSTRUCTOR DANCING Height 175.3 cm (5' 9 ) 05/26/2022 11:29 AM INSTRUCTOR DANCING Body Mass Index 28.06 05/26/2022 11:29 AM INSTRUCTOR DANCING Plan of Treatment Not on file Insurance MEDICARE [facility] Care Teams Stem Lead Former Relationship Specialty Start Date End Date Treva Wharton MD [address] [place] [address] PCP - General Internal Medicine 05/26/22
== END 2024-06-19 11:49 | disposition home or self-care (01) ==
LOC: CHSIMG 11:49
PROVIDERS: PCP Internal Medicine; Visit Provider Internal Medicine
DX: Z12.31 Encounter for screening mammogram for malignant neoplasm of breast (principal)
CPT/HCPCS: 77063; 77067

== ENCOUNTER 2024-11-25 15:54 | Emergency (ER) | payer MEDICARE, SELFPAY ==
--- NOTE | ~2024-11-25 | CT_ITS ---
EXAMINATION: CT brain wo con DATE: 11/25/2024 16:27 INDICATION: Fall, Lt. supraorbital swelling bruising/ headache/ nausea . TECHNIQUE: Computed tomography (CT) of the head was performed without intravenous contrast. The mA wa s adjusted according to patient size. Iterative reconstruction technique was employed. The dose-lengt h product was 605.33 mGy-cm. COMPARISON: 05/06/2020. FINDINGS: No acute intracranial hemorrhage or extra-axial fluid collection. No hydrocephalus, mass, or herniation. No acute ischemic infarct. Unremarkable dural venous sinus attenuation. No acute osseous abnormality. The aerated spaces are clear. Mild atrophy and moderate chronic white matter change. Atherosclerotic intracranial calcification. Bi lateral lens replacements. IMPRESSION: No acute intracranial process. Reviewed, dictated and finalized at location K.
--- NOTE | ~2024-11-25 | CT_ITS ---
EXAMINATION: CT facial & cervical spine wo DATE: 11/25/2024 16:28 INDICATION: Fall, Lt. supraorbital swelling bruising/ headache/ nausea TECHNIQUE: Computed tomography (CT) of the maxillofacial region and cervical spine was performed with out intravenous contrast. Automated exposure control and iterative reconstruction technique were empl oyed. The dose-length product was 462.91 mGy-cm. COMPARISON: None FINDINGS: CERVICAL: Vertebral Body Alignment: Minimal anterolisthesis at C7-T1, presumably on a degenerative basis. Craniocervical and atlantoaxial alignment: Moderate degenerative change. Alignment intact. Osseous structures/fracture: No evidence of a lytic or blastic process in the visualized spine. No e vidence of acute fracture. Cervical soft tissues: The paraspinal soft tissues planes are maintained. Degenerative changes: Multilevel degenerative disc disease and facet arthropathy. Severe left neural foraminal narrowing at C4-5 and C5-C6 secondary to degenerative changes. No severe central canal narr owing. FACE: Soft Tissues: Left orbital soft tissue swelling. Facial bones: No acute fracture. No lytic or blastic process. Small cerclage wire in the right keith ble. Eyes: The globes are intact. Bilateral lens replacements. The soft tissue planes of the orbits are m aintained. Paranasal Sinuses: The visualized aerated spaces are clear. Foreign Bodies: No radiopaque foreign bodies. Other Findings: Subcentimeter left thyroid nodule which requires no additional evaluation at this misael e. Biapical pleural scarring. IMPRESSION: No acute fracture or traumatic malalignment in the cervical spine. No acute facial bone fracture. Reviewed, dictated and finalized at location K. IMPRESSION: No acute fracture or traumatic malalignment in the cervical spine. No acute fac ial bone fracture.
[2024-11-25 15:55] VITALS: BP 167/95; PULSE 89; RESP 16; TEMP 36.5; O2SAT 98
--- NOTE | 2024-11-25 15:58 | ED_ITS ---
HPI - Eye Problem General Stated complaint: pain above eye from fall Time Seen by Provider: 11/25/24 15:58 Related Data Home Medications ?Medication ?Instructions ?Recorded ?Confirmed ?Last Taken ?Type amlodipine 10 mg tablet 10 mg PO DAILY 10/26/23 01/11/24 01/11/24 05:15 History atorvastatin 20 mg tablet 20 mg PO DAILY 10/26/23 12/30/23 Unknown History cholecalciferol (vitamin D3) 25 25 mcg PO DAILY 10/26/23 01/11/24 01/08/24 History mcg (1,000 unit) capsule fluticasone propionate 50 1 spray intranasal DAILY 10/26/23 12/30/23 Unknown History mcg/actuation nasal spray,suspension hydrochlorothiazide 12.5 mg tablet 12.5 mg PO DAILY 10/26/23 12/30/23 Unknown History levothyroxine 150 mcg capsule 150 mcg PO DAILY 10/26/23 01/11/24 01/11/24 05:15 History losartan 100 mg tablet 100 mg PO DAILY 10/26/23 12/30/23 Unknown History mirtazapine 7.5 mg tablet 7.5 mg PO DAILY 10/26/23 12/30/23 Unknown History multivitamin 1 tablet PO DAILY 10/26/23 01/11/24 01/08/24 History gabapentin 300 mg capsule 300 mg PO TID 12/30/23 01/11/24 01/11/24 05:15 History Allergies Allergy/AdvReac Type Severity Reaction Status Date / Time No Known Allergies Allergy Verified 02/15/24 10:13 [facility] Past Medical History Medical History Asthma Headache HTN (hypertension) Lumbar stenosis with neurogenic claudication Thyroid disorder Surgical History Surgical History History of dental surgery Family History Family History Father Alcoholism Hypertension Heart disease Mother Hypertension Cerebrovascular accident Sibling Alcoholism Diabetes mellitus Hypertension Depression Social History Social History Smoking status: Never smoker Alcohol intake: never Substance use: never Substance use type: does not use Do You Feel Safe in your Home?: Yes Lack of Transportation: No Lack of Food: Never True Current Housing: I Have Housing Concerned About Future Housing: No Difficulty Paying Gas/Electric Bills: No Difficulty Paying for Meds: No Currently Unemployed: No Education: Bachelor's Degree Difficulty w/ Childcare or Family Care: No Living arrangements: with family Spiritual care concerns: No Course Vital Signs Vital signs: Vital Signs Temperature 36.5 C 11/25/24 15:55 Pulse Rate 89 11/25/24 15:55 Respiratory Rate 16 11/25/24 15:55 Blood Pressure 167/95 H 11/25/24 15:55 Pulse Oximetry 98 11/25/24 15:55 Oxygen Delivery Room Air 11/25/24 15:55 Temperature 36.5 C 11/25/24 15:55 Pulse Rate 89 11/25/24 15:55 Respiratory Rate 16 11/25/24 15:55 Blood Pressure 167/95 H 11/25/24 15:55 Pulse Oximetry 98 11/25/24 15:55 Oxygen Delivery Room Air 11/25/24 15:55 Discharge Plan Discharge Patient Language: Amharic Prescriptions: No Action hydrochlorothiazide 12.5 mg tablet 12.5 mg PO DAILY mirtazapine 7.5 mg tablet 7.5 mg PO DAILY Rx Instructions: Takes at hs levothyroxine 150 mcg capsule 150 mcg PO DAILY losartan 100 mg tablet 100 mg PO DAILY amlodipine 10 mg tablet 10 mg PO DAILY atorvastatin 20 mg tablet 20 mg PO DAILY cholecalciferol (vitamin D3) 25 mcg (1,000 unit) capsule 25 mcg PO DAILY multivitamin Tablet 1 tablet PO DAILY fluticasone propionate 50 mcg/actuation spray,suspension 1 spray intranasal DAILY Rx Instructions: administer into each nostril gabapentin 300 mg capsule 300 mg PO TID Follow-up/Referrals: Treva Wharton MD [Primary Care Provider] -
--- OUTSIDE RECORDS SUMMARY | 2024-11-25 16:00 | XMS_ITS | Referral Summary ---
Author Organization [facility] [address] [place] Address [address] [place] [address] Care Team Providers Care Bar Useful Or Busser Name Role Phone Treva Wharton MD Primary Care Provider + [phone] Allergies No known active allergies Medications traZODone [...] 05/29/2022 Assessment & Plan (05/29/2022 6:48 PM VACATION GUIDE): This appears to be caused by a fairly prominent vessel along the anterior superior nasal septum on the left side. This was cauterized without difficulty. No other bleeding sites noted. I recommended no further intervention. Follow-up as needed. Internal nasal lesion 05/29/2022 Assessment & Plan (05/29/2022 6:49 PM VACATION GUIDE): This lesion was cauterized with silver nitrate [...] on file Legal Sex Female 9:58 AM VACATION GUIDE Gender Identity Not on file Sexual Orientation Not on file Last Filed Vital Signs Vital Sign Reading Time Taken Comments Blood Pressure 130/88 12/14/2015 4:34 PM CDT Pulse 68 12/14/2015 4:34 PM CDT Temperature - - Respiratory Rate 18 05/26/2022 11:29 AM VACATION GUIDE Oxygen Saturation 98% 12/14/2015 4:34 PM CDT Inhaled Oxygen Concentration - - Weight 86.2 kg (190 lb) 05/26/2022 11:29 AM VACATION GUIDE Height 175.3 cm (5' 9) 05/26/2022 11:29 AM VACATION GUIDE Body Mass Index 28.06 05/26/2022 11:29 AM VACATION GUIDE Plan of Treatment Not on file Insurance MEDICARE [facility] Care Teams Bar Useful Or Busser Relationship Specialty Start Date End Date Treva Wharton MD [address] [place] [address] PCP - General Internal Medicine 05/26/22
--- OUTSIDE RECORDS SUMMARY | 2024-11-25 16:00 | XMS_ITS | Clinical Summary ---
Author Organization [facility] Address [address] [place] [address] Care Team Providers Care Head Of Acquisitions Name Role Phone Kerry Momin MD Primary Care Provider [phone]- [phone] Medications METOPROLOL SUCCINATE ER OR Take 50 [...] 11:09 AM CDT Height 175.3 cm (5' 9) 02/18/2021 11:09 AM CDT Body Mass Index 28.06 02/18/2021 11:09 AM CDT Plan of Treatment Health Maintenance Due Date Last Done Comments Colorectal Cancer Screening Colonoscopy (10 Years) 1953 Hepatitis C 11/15/1971 DTaP, Tdap and Td Vaccines ( 1 - Tdap) 1972 Mammogram Screening 1993 Pneumococcal Vaccine: 50+ Years (1 of 1 - PCV) 11/15/2003 Zoster Vaccines (2 of 3) 02/20/2015 12/26/2014 Annual Medicare Wellness Visit 2018 Dexa Scan (General) 2018 COVID-19 Vaccine (3 - 2023-2 5 season) 2023 08/15/2020, 07/19/2020 RSV Immunization or 60+ Years (1 - [...] age to complete this topic Insurance MEDICARE [facility] Care Teams Head Of Acquisitions Relationship Specialty [place] [address] [place] [address] PCP - General INTERNAL MEDICINE 02/18/21
--- OUTSIDE RECORDS SUMMARY | 2024-11-25 16:00 | XMS_ITS | Clinical Summary ---
Author Organization [facility] [address] [place] Address [address] [place] [address] Care Team Providers Care Hairspring Assembler Name Role Phone Treva Wharton MD Primary Care Provider + [phone] Allergies No known active allergies Medications traZODone [...] 05/29/2022 Assessment & Plan (05/29/2022 6:48 PM HELPER DRIVER): This appears to be caused by a fairly prominent vessel along the anterior superior nasal septum on the left side. This was cauterized without difficulty. No other bleeding sites noted. I recommended no further intervention. Follow-up as needed. Internal nasal lesion 05/29/2022 Assessment & Plan (05/29/2022 6:49 PM HELPER DRIVER): This lesion was cauterized with silver nitrate [...] on file Legal Sex Female 9:58 AM HELPER DRIVER Gender Identity Not on file Sexual Orientation Not on file Obstetrics History Last Filed Vital Signs Vital Sign Reading Time Taken Comments Blood Pressure 130/88 12/14/2015 4:34 PM CDT Pulse 68 12/14/2015 4:34 PM CDT Temperature - - Respiratory Rate 18 05/26/2022 11:29 AM HELPER DRIVER Oxygen Saturation 98% 12/14/2015 4:34 PM CDT Inhaled Oxygen Concentration - - Weight 86.2 kg (190 lb) 05/26/2022 11:29 AM HELPER DRIVER Height 175.3 cm (5' 9) 05/26/2022 11:29 AM HELPER DRIVER Body Mass Index 28.06 05/26/2022 11:29 AM HELPER DRIVER Plan of Treatment Health Maintenance Due Date [...] 08/15/2020, Additional history exists Influenza Vaccine (#1) 2024 , 02/16/2021, 02/01/2019, Additional history exists DTaP/Tdap/Td Vaccine (2 - Td or Tdap) 03/10/2026 03/10/2016, 07/13/2003 Insurance MEDICARE [facility] Care Teams Hairspring Assembler Relationship Specialty Start Date End Date Treva Wharton MD [address] [place] [address] PCP - General Internal Medicine 05/26/22
--- NOTE | 2024-11-25 16:07 | ED_ITS ---
HPI - Fall General Chief Complaint: Fall Stated Complaint: pain above eye from fall Time Seen by Provider: 11/25/24 15:58 Source: patient Mode of arrival: ambulatory Limitations: no limitations History of Present Illness HPI Narrative: 69-year-old female with a history of asthma, thyroid cancer status post resection with hypothyroidism, lumbar stenosis status post laminectomy, had an accidental fall night. She got up at night and fell on her face. No loss of consciousness. She developed -- left periorbital ecchymosis -- nausea without any vomiting today -- generalized headache -- left knee contusion no focal neuro deficits. No ENT bleeding. Fingerstick was noted to be 124 MD complaint: fall Onset (ago): day(s) ( Two days ago) Fall from: standing Fall witnessed: no Place fall occurred: home Prolonged down time: no Symptoms prior to fall: none Context: tripped/slipped Location of injury: face Location of injury - extremities: Left: knee Associated symptoms (after fall): headache Related Data Home Medications ?Medication ?Instructions ?Recorded ?Confirmed ?Last Taken ?Type amlodipine 10 mg tablet 10 mg PO DAILY 10/26/23 01/11/24 01/11/24 05:15 History atorvastatin 20 mg tablet 20 mg PO DAILY 10/26/23 12/30/23 Unknown History cholecalciferol (vitamin D3) 25 25 mcg PO DAILY 10/26/23 01/11/24 01/08/24 History mcg (1,000 unit) capsule fluticasone propionate 50 1 spray intranasal DAILY 10/26/23 12/30/23 Unknown History mcg/actuation nasal spray,suspension hydrochlorothiazide 12.5 mg tablet 12.5 mg PO DAILY 10/26/23 12/30/23 Unknown History levothyroxine 150 mcg capsule 150 mcg PO DAILY 10/26/23 01/11/24 01/11/24 05:15 History losartan 100 mg tablet 100 mg PO DAILY 10/26/23 12/30/23 Unknown History mirtazapine 7.5 mg tablet 7.5 mg PO DAILY 10/26/23 12/30/23 Unknown History multivitamin 1 tablet PO DAILY 10/26/23 01/11/24 01/08/24 History gabapentin 300 mg capsule 300 mg PO TID 12/30/23 01/11/24 01/11/24 05:15 History Allergies Allergy/AdvReac Type Severity Reaction Status Date / Time No Known Allergies Allergy Verified 02/15/24 10:13 Review of Systems 2 Review of Systems: All systems reviewed & are unremarkable except as noted in HPI and below Constitutional: Constitutional: Reports as per HPI and Reports no additional constitutional complaints Eyes: Eyes: Reports as per HPI and Reports no additional eye complaints C omments: left periorbital ecchymosis ENT: Reports system reviewed and no additional complaints, except as documented and Reports as per HPI Cardiovascular: Cardiovascular: Reports as per HPI and Reports no additional cardiovascular complaints Respiratory: Respiratory: Reports as per HPI and Reports no additional respiratory complaints Gastrointestinal: Gastrointestinal: Reports as per HPI and Reports no additional gastrointestinal complaints Genitourinary: Genitourinary: Reports no additional female genitourinary complaints and Reports as per HPI Musculoskeletal: Musculoskeletal: Reports no additional musculoskeletal complaints and Reports as per HPI Integumentary/Breasts: Skin/Breast: Reports system reviewed and no additional complaints, except as docu and Reports as per HPI Comments: left knee contusion left periorbital ecchymos Neurologic: Reports system reviewed and no additional complaints, except as documented and Reports as per HPI Psychiatric: Psychiatric: Reports no additional psychiatric complaints and Reports as per HPI Endocrine: Endocrine: Reports no additional endocrine complaints and Reports as per HPI Hematologic/Lymphatic: Hematologic/Lymphatic: Reports no additional hematologic/lymphatic complaints and Reports as per HPI Allergic/Immunologic: Allergic/Immunologic: Reports no additional allergic/immunologic complaints and Reports as per HPI PMFSH Past Medical History Medical History Lumbar stenosis with neurogenic claudication Thyroid disorder HTN (hypertension) Headache Asthma Surgical History Surgical History History of dental surgery Family History Family History Father Alcoholism Hypertension Heart disease Mother Hypertension Cerebrovascular accident Sibling Alcoholism Diabetes mellitus Hypertension Depression Social History Social History Smoking status: Never smoker Alcohol intake: never Substance use: never Substance use type: does not use Do You Feel Safe in your Home?: Yes Lack of Transportation: No Lack of Food: Never True Current Housing: I Have Housing Concerned About Future Housing: No Difficulty Paying Gas/Electric Bills: No Difficulty Paying for Meds: No Currently Unemployed: No Education: Bachelor's Degree Difficulty w/ Childcare or Family Care: No Living arrangements: with family Spiritual care concerns: No Exam 2 Narrative: blood pressure is 167/95. Heart rate of 89 Const: General: healthy appearing Orientation/consciousness: patient oriented x3 Limitations: no limitations HENMT: Head: normal to inspection Head images: 1. left periorbital ecchymosis 2. tenderness left supraorbital region. Ears: external ears normal, TM's normal bilaterally and EAC's normal F benjamin/Nose/Sinus: Normal external nose present Face and sinus: normal facial exam and sinuses nontender Mouth: Yes Normal oral and palatal mucosa present Throat: posterior oropharynx normal Eyes: Conjunctivae: conjunctivae normal Pupils: Equal, round and reactive pupils present EOM: EOMs intact bilaterally Direct Ophthalmoscopy: no photophobia Neck: Neck: normal visual inspection, no lymphadenopathy and no meningeal signs Chest: Chest palpation & inspection: normal inspection of the chest Resp: Effort & Inspection: normal respiratory effort Auscultation: clear to auscultation bilaterally Cardio: Rate: regular rate Rhythm: regular rhythm GI: GI Palp: Yes Soft to palpation Auscultation: normal bowel sounds O ther: No tenderness/ rigidity / rebound. : General: Yes no CVA tenderness Back/Spine/Pelvis: Back: no CVA tenderness Skin: General skin exam: normal color Rashes: no rashes Wounds: no wounds Other: Left periorbital ecchymosis. Neuro: General: patient oriented x3, moves all extremities, no meningeal signs, no focal motor deficits and CN's II-XI intact bilaterally Cranial nerves: Yes Nystagmus not present Speech: normal speech Gait exam (Neuro): Normal gait present Extrem: General: normal to inspection and no clubbing, cyanosis or edema Psych: Mental Status: mental status grossly normal Affect: normal affect Attitude: cooperative Course Course Emergency Course: Accidental fall facial trauma with supraorbital tenderness on the left and left periorbital ecchymosis. Is no mastoid bruising or nasal discharge. No ENT bleeding CT of head and C-spine did not show any acute fracture/dislocation Vital Signs Vital signs: Vital Signs Temperature 36.5 C 11/25/24 15:55 Pulse Rate 89 11/25/24 15:55 Respiratory Rate 16 11/25/24 15:55 Blood Pressure 167/95 H 11/25/24 15:55 Pulse Oximetry 98 11/25/24 15:55 Oxygen Delivery Room Air 11/25/24 15:55 Temperature 36.7 C 11/25/24 17:05 Pulse Rate 84 11/25/24 17:05 Respiratory Rate 16 11/25/24 17:05 Blood Pressure 144/83 H 11/25/24 17:05 Pulse Oximetry 98 11/25/24 17:05 Oxygen Delivery Room Air 11/25/24 17:05 MDM - Fall MDM Narrative Medical decision making narrative: accidental fall facial trauma periorbital ecchymosis head injury Differential Diagnosis Differential diagnosis: Likely concussion without loss of consciousness Lab Data Attestation: I reviewed the patient's lab results. Labs: Lab Results 11/25/24 Range/Units 16:10 POC Capillary Glucose 124 H (65-105) mg/dl Discharge Plan Discharge Clinical Impression: Accidental fall Qualifiers: Encounter type: initial encounter Qualified Code(s): W19.XXXA - Unspecified fall, initial encounter Facial trauma Qualifiers: Encounter type: initial encounter Qualified Code(s): S09.93XA - Unspecified injury of face, initial encounter Head injury Qualifiers: Encounter type: initial encounter Qualified Code(s): S09.90XA - Unspecified injury of head, initial encounter Periorbital ecchymosis Qualifiers: Encounter type: initial encounter Laterality: left Qualified Code(s): S00.12XA - Contusion of left eyelid and periocular area, initial encounter Patient Disposition: Home Condition: Stable Instructions: Antibiotic Form, Head Injury (ED) Patient Language: Maltese Prescriptions: New ondansetron HCl 4 mg tablet 4 mg PO Q8H PRN (Reason: nausea and vomiting) 4 Days Qty: 10 0RF No Action hydrochlorothiazide 12.5 mg tablet 12.5 mg PO DAILY mirtazapine 7.5 mg tablet 7.5 mg PO DAILY Rx Instructions: Takes at hs levothyroxine 150 mcg capsule 150 mcg PO DAILY losartan 100 mg tablet 100 mg PO DAILY amlodipine 10 mg tablet 10 mg PO DAILY atorvastatin 20 mg tablet 20 mg PO DAILY cholecalciferol (vitamin D3) 25 mcg (1,000 unit) capsule 25 mcg PO DAILY multivitamin Tablet 1 tablet PO DAILY fluticasone propionate 50 mcg/actuation spray,suspension 1 spray intranasal DAILY Rx Instructions: administer into each nostril gabapentin 300 mg capsule 300 mg PO TID Follow-up/Referrals: Treva Wharton MD [Primary Care Provider] - Time of Disposition: 17:08
--- OUTSIDE RECORDS SUMMARY | 2024-11-25 16:39 | XMS_ITS | Referral Summary ---
Author Organization [facility] [address] [place] Address [address] [place] [address] Care Team Providers Care Photo Mask Pattern Generator Name Role Phone Treva Wharton MD Primary Care Provider + [phone] Allergies No known active allergies Medications traZODone [...] 05/29/2022 Assessment & Plan (05/29/2022 6:48 PM COMMUNITY PLANNER): This appears to be caused by a fairly prominent vessel along the anterior superior nasal septum on the left side. This was cauterized without difficulty. No other bleeding sites noted. I recommended no further intervention. Follow-up as needed. Internal nasal lesion 05/29/2022 Assessment & Plan (05/29/2022 6:49 PM COMMUNITY PLANNER): This lesion was cauterized with silver nitrate [...] on file Legal Sex Female 9:58 AM COMMUNITY PLANNER Gender Identity Not on file Sexual Orientation Not on file Last Filed Vital Signs Vital Sign Reading Time Taken Comments Blood Pressure 130/88 12/14/2015 4:34 PM CDT Pulse 68 12/14/2015 4:34 PM CDT Temperature - - Respiratory Rate 18 05/26/2022 11:29 AM COMMUNITY PLANNER Oxygen Saturation 98% 12/14/2015 4:34 PM CDT Inhaled Oxygen Concentration - - Weight 86.2 kg (190 lb) 05/26/2022 11:29 AM COMMUNITY PLANNER Height 175.3 cm (5' 9) 05/26/2022 11:29 AM COMMUNITY PLANNER Body Mass Index 28.06 05/26/2022 11:29 AM COMMUNITY PLANNER Plan of Treatment Not on file Insurance MEDICARE [facility] Care Teams Photo Mask Pattern Generator Relationship Specialty Start Date End Date Treva Wharton MD [address] [place] [address] PCP - General Internal Medicine 05/26/22
--- OUTSIDE RECORDS SUMMARY | 2024-11-25 16:39 | XMS_ITS | Clinical Summary ---
Author Organization [facility] Address [address] [place] [address] Care Team Providers Care Stock Analyst Name Role Phone Kerry Momin MD Primary Care Provider +1- [phone] Medications METOPROLOL SUCCINATE ER OR Take 50 [...] age to complete this topic Insurance MEDICARE [facility] Care Teams Stock Analyst Relationship Specialty [place] [address] [place] [address] PCP - General INTERNAL MEDICINE 02/18/21
--- OUTSIDE RECORDS SUMMARY | 2024-11-25 16:39 | XMS_ITS | Clinical Summary ---
Author Organization [facility] [address] [place] Address [address] [place] [address] Care Team Providers Care Transportation Sales Consultant Name Role Phone Treva Wharton MD Primary Care Provider + [phone] Allergies No known active allergies Medications traZODone [...] 05/29/2022 Assessment & Plan (05/29/2022 6:48 PM DIGITAL SPECIALIST): This appears to be caused by a fairly prominent vessel along the anterior superior nasal septum on the left side. This was cauterized without difficulty. No other bleeding sites noted. I recommended no further intervention. Follow-up as needed. Internal nasal lesion 05/29/2022 Assessment & Plan (05/29/2022 6:49 PM DIGITAL SPECIALIST): This lesion was cauterized with silver nitrate [...] on file Legal Sex Female 9:58 AM DIGITAL SPECIALIST Gender Identity Not on file Sexual Orientation Not on file Obstetrics History Last Filed Vital Signs Vital Sign Reading Time Taken Comments Blood Pressure 130/88 12/14/2015 4:34 PM CDT Pulse 68 12/14/2015 4:34 PM CDT Temperature - - Respiratory Rate 18 05/26/2022 11:29 AM DIGITAL SPECIALIST Oxygen Saturation 98% 12/14/2015 4:34 PM CDT Inhaled Oxygen Concentration - - Weight 86.2 kg (190 lb) 05/26/2022 11:29 AM DIGITAL SPECIALIST Height 175.3 cm (5' 9) 05/26/2022 11:29 AM DIGITAL SPECIALIST Body Mass Index 28.06 05/26/2022 11:29 AM DIGITAL SPECIALIST Plan of Treatment Health Maintenance Due Date [...] or Tdap) 03/10/2026 03/10/2016, 07/13/2003 Insurance MEDICARE [facility] Care Teams Transportation Sales Consultant Relationship Specialty Start Date End Date Treva Wharton MD [address] [place] [address] PCP - General Internal Medicine 05/26/22
[2024-11-25] MEDS: ONDANSETRON HCL ODT 4 MG TABLET PO (16:43)
[2024-11-25 17:05] VITALS: BP 144/83; PULSE 84; RESP 16; TEMP 36.7; O2SAT 98
== END 2024-11-25 17:05 | disposition home or self-care (01) ==
PROVIDERS: Emergency Provider Internal Medicine Critical Care Medicine; PCP Internal Medicine
DX: S00.12XA Contusion of left eyelid and periocular area, initial encounter (principal); I10 Essential (primary) hypertension; E11.9 Type 2 diabetes mellitus without complications; Z85.850 Personal history of malignant neoplasm of thyroid; W19.XXXA Unspecified fall, initial encounter
CPT/HCPCS: 70450; 70486; 72125; 82948; 99284; A9270